=== PATIENT | female | born 1980 | race Two or more races ===

== ENCOUNTER 2018-05-02 18:55 | Emergency (ER) | payer SELFPAY ==
[2018-05-02] MEDS ORDERED: Cyclobenzaprine TAB* 10 MG PO ONE (19:12)
[2018-05-02] MEDS ORDERED: Ketorolac INJ* 60 MG/2 ML VIAL IM ONE (19:12)
[2018-05-02 19:13] VITALS: BP 84/58
--- NOTE | 2018-05-02 19:28 | UC ---
Back Pain HPI - HPI Summary HPI Summary: This is kayliee Sailaja Snyder documenting for attending Lex Chou MD. This patient is a 37 year old F presenting to [facility] with a chief complaint of lower back pain that began 10 days ago. The patient rates the pain 8/10 in severity. Symptoms aggravated by nothing. Symptoms alleviated by nothing. Patient denies urinary symptoms and bowel symptoms. She denies recent trauma. Last menstrual period was 05/01/2018. - History of Current Complaint Chief Complaint: UCBackPain Stated Complaint: BACK PAIN Time Seen by Provider: 05/02/18 19:05 Hx Obtained From: Patient Hx Last Menstrual Period: [id number] ?: No Onset/Duration: Sudden Onset, Lasting Weeks, Still Present Timing: Constant Severity Initially: Severe Severity Currently: Severe Pain Intensity: 8 Pain Scale Used: 0-10 Numeric Aggravating Factor(s): Nothing Alleviating Factor(s): Nothing Associated Signs And Symptoms: Negative: Bladder Incontinence, Bowel Incontinence - Allergies/Home Medications Allergies/Adverse Reactions: Allergies Allergy/AdvReac Type Severity Reaction Status Date / Time No Known Allergies Allergy Verified 05/02/18 19:13 PMH/Surg Hx/FS Hx/Imm Hx Previously Healthy: Yes Endocrine History: Other Other Endocrine History: Negative diabetes Cardiovascular History: Other Other Cardiovascular History: Negative HTN - Surgical History Surgical History: None - Family History Known Family History: Positive: Unknown - Social History Occupation: Unemployed Lives: Alone Alcohol Use: Occasionally Substance Use Type: Marijuana Smoking Status (MU): Heavy Every Day Tobacco Smoker Review of Systems Gastrointestinal: Negative Genitourinary: Negative Musculoskeletal: Other: - Positive lower back pain All Other Systems Reviewed And Are Negative: Yes Physical Exam - Summary Physical Exam Summary: VITAL SIGNS: Reviewed. GENERAL: Patient is a well-developed and nourished female who is lying comfortable in the stretcher. Patient is not in any acute respiratory distress. HEAD AND FACE: Normocephalic EYES: PERRLA, EOMI x 2. EARS: Hearing grossly intact. MOUTH: Oropharynx within normal limits. NECK: Supple, trachea is midline, no adenopathy, no JVD, no carotid bruit. CHEST: Symmetric, no tenderness at palpation LUNGS: Clear to auscultation bilaterally. No wheezing or crackles. CVS: Regular rate and rhythm, S1 and S2 present, no murmurs or gallops appreciated. ABDOMEN: Soft, non-tender. Bowel sounds are normal. No abdominal abnormal pulsations. Musculoskeletal: Muscle tenderness in the lumbar spine EXTREMITIES: Full ROM in all major joints, no edema, no cyanosis or clubbing. NEURO: Alert and oriented x 3. No acute neurological deficits. Speech is normal and follows commands. SKIN: Dry and warm Triage Information Reviewed: Yes Vital Signs: Initial Vital Signs Temp 98.5 F 05/02/18 19:06 Pulse 73 05/02/18 19:06 Resp 18 05/02/18 19:06 BP 84/58 05/02/18 19:06 Pulse Ox 97 05/02/18 19:06 Vital Signs Reviewed: Yes Diagnostics - Radiology Lumbar Spine XR Radiology Interpretation Completed By: Radiologist - Lumbar spine XR reveals, per radiologist, minor disc space narrowing L5-S1. No acute findings. ED physician has reviewed this radiology report. Back Pain Course/Dx - Course Course Of Treatment: This patient is a 37-year-old female who presents to the emergency department with chief complaint of lower back pain. Patient denies any dysuria or urinary frequency or any other complaint. Patient doesn't have any fecal or urinary dysfunction. X-ray of the lumbar spine shows a disc space narrowing between L5 and S1. The patient was given Toradol and Flexeril and the symptoms improved. The patient will be discharged home with follow-up with PCP and she will be given a prescription for ibuprofen, Flexeril, and Medrol Dosepak. The patient is hemodynamically stable alert and oriented 3. - Differential Dx/Diagnosis Provider Diagnoses: Back pain Discharge - Sign-Out/Discharge Documenting (check all that apply): Patient Departure - Discharge Plan Condition: Stable Disposition: HOME Prescriptions: Cyclobenzaprine TAB* [Flexeril 10 MG TAB*] 10 mg PO TID PRN #9 tab PRN Reason: Pain Ibuprofen TAB* [Motrin TAB* 600 MG] 600 mg PO Q8H PRN #30 tab PRN Reason: Pain methylPREDNISolone [Medrol Dosepak 4 MG*] 0 mg PO .SEE FADY INSTRUCTION #1 fady Patient Education Materials: Acute Low Back Pain (ED) Referrals: [facility] [facility] [Outside] No Primary Care Phys,NOPCP [Primary Care Provider] - Additional Instructions: Take medications as instructed and adhere to plan Take Acetaminophen or ibuprofen for pain or fever Increase your fluid intake Return to the UC or go to the emergency department if symptoms worsen Follow-up with primary care physician in next 2-3 days - Billing Disposition and Condition Condition: STABLE Disposition: Home
--- NOTE | 2018-05-02 19:47 | RAD ---
INDICATION: Fall. Back pain COMPARISON: None TECHNIQUE: AP and lateral views were obtained . FINDINGS: Bones: There are no acute bony findings. There are no significant osteoarthritic findings. Alignment: Normal Disc spaces: There is minor disc space narrowing about L5-S1 The remaining disc spaces are well-maintained Soft tissues: There are no soft tissue abnormalities. IMPRESSION: MINOR DISC SPACE NARROWING L5-S1. NO ACUTE FINDINGS.
== END 2018-05-02 19:50 | disposition home or self-care (01) ==
LOC: UCEAST 18:55
DX: M54.5 Low back pain (principal); F17.200 Nicotine dependence, unspecified, uncomplicated
CPT/HCPCS: 72100; 81003; 84702; 87086; 96372; 99202; A9270-GY; G0463; J1885

== ENCOUNTER 2019-06-30 21:11 | Emergency (ER) | payer SELFPAY ==
[2019-06-30] MEDS ORDERED: Amoxicillin/Clavulanate TAB* 875 MG PO ONE (21:44)
[2019-06-30] MEDS ORDERED: Ibuprofen TAB* 400 MG PO ONE (21:44)
--- NOTE | 2019-06-30 21:46 | ED ---
Lower Extremity - HPI Summary HPI Summary: This pt is a 39 Y/O F presenting to [facility] accompanied by her girlfriend with a CC of a possible infected tattoo in /her R calf. She states that she was in [place] when she got the tattoo. She has been having pain that is rated an 8/10 in severity since 06/25/19. She states that she has been having pus oozing from the tattoo, has felt fluid buildup in her R lateral ankle. She also states that she has been having episodic diarrhea. She denies any fevers, chills, N/V, and headaches. She states no aggravating or alleviating symptoms. She has a PMHx of Livedoid vasculopathy. - History of Current Complaint Chief Complaint: EDExtremityLower Stated Complaint: TATTOO ON LEG IS INFECTED PER PT Time Seen by Provider: 06/30/19 21:34 Hx Obtained From: Patient Hx Last Menstrual Period: Mechanism Of Injury: Other - recet tattoo, possible infection Onset of Pain: Days - 5 Onset/Duration: Days - 5 Severity Initially: Moderate Severity Currently: Severe Pain Intensity: 8 Pain Scale Used: 0-10 Numeric Timing: Constant Location: Is Diffuse - RLE Associated Signs And Symptoms: Positive: Redness, Other. Negative: Fever Aggravating Factor(s): Nothing Alleviating Factor(s): Nothing - Allergies/Home Medications Allergies/Adverse Reactions: Allergies Allergy/AdvReac Type Severity Reaction Status Date / Time No Known Allergies Allergy Verified 06/30/19 21:19 PMH/Surg Hx/FS Hx/Imm Hx Previously Healthy: Yes Endocrine/Hematology History: Denies: Hx Diabetes, Hx Thyroid Disease Cardiovascular History: Denies: Hx Hypertension Respiratory History: Denies: Hx Asthma, Hx Chronic Obstructive Pulmonary Disease (COPD) GI History: Denies: Hx Ulcer Sensory History: Reports: Hx Contacts or Glasses Opthamlomology History: Reports: Hx Contacts or Glasses - Surgical History Surgical History: None Infectious Disease History: No Infectious Disease History: Denies: Hx Hepatitis, Hx Human Immunodeficiency Virus (HIV), Traveled Outside the [place] in Last 30 Days - Family History Known Family History: Positive: Diabetes, Other - CA - Social History Occupation: Employed Full-time Lives: With Family Alcohol Use: Occasionally Hx Substance Use: Yes Substance Use Type: Reports: Marijuana Hx Tobacco Use: Yes Smoking Status (MU): Heavy Every Day Tobacco Smoker Amount Used/How Often: 12 cigarettes Review of Systems Negative: Fever, Chills Negative: Vomiting, Nausea Positive: Other - R lower extremity pain Skin: Other - red sheldon on calf, pus discharge from recent tattoo Negative: Headache All Other Systems Reviewed And Are Negative: Yes Physical Exam - Summary Physical Exam Summary: General: Well-developed, Well-nourished female. No acute distress. HEENT: Normocephalic, Atraumatic. Eyes: Conjuctiva normal, PERRL. Ears: TMs within normal limits. Nares: (-) discharge, (-) erythema. Oropharynx: Clear, mucous membranes moist, (-) exudates. Neck: Soft, FROM, (-) lymphadenopathy, (-) thyromegaly, (-) JVD. Cardiovascular: Normal sinus rhythm, (-) murmur. Lungs: Clear to auscultation bilaterally (-) wheezes, (-) rales, (-) rhonchi. Abdomen: Soft, non-tender, non-distended, (-) organomegaly, normal bowel sounds. Back: (-) CVA tenderness Extremities: No edema, R lateral leg has distal erythema, swelling, drainage, normal pulses , tenderness and warmth Skin: Warm, dry, (-) rash. Neuro: Alert and oriented x3, no focal deficits. Psychiatric: Mood normal, affect normal. Triage Information Reviewed: Yes Vital Signs On Initial Exam: Initial Vitals Temp Pulse Resp BP Pulse Ox 98.2 F 76 16 118/94 98 06/30/19 21:15 06/30/19 21:15 06/30/19 21:15 06/30/19 21:15 06/30/19 21:15 Vital Signs Reviewed: Yes Diagnostics - Vital Signs Vital Signs Temp Pulse Resp BP Pulse Ox 06/30/19 21:15 98.2 F 76 16 118/94 98 - Laboratory Lab Statement: Any lab studies that have been ordered have been reviewed, and results considered in the medical decision making process. Lower Extremity Course/Dx - Course Course Of Treatment: This pt is a 39 Y/O F presenting to [facility] accompanied by her girlfriend with a CC of a possible infected tattoo in /her R calf. She states that she was in [place] when she got the tattoo. Her PE found that her R lateral leg has distal erythema, swelling, drainage, normal pulses , tenderness and warmth. - Diagnoses Provider Diagnoses: Cellulitis of right leg Discharge ED - Sign-Out/Discharge Documenting (check all that apply): Patient Departure - discharge Patient Received Moderate/Deep Sedation with Procedure: No - Discharge Plan Condition: Stable Disposition: HOME Prescriptions: Amoxicillin/Clavulanate TAB* [Augmentin TAB 875*] 875 mg PO BID 10 Days #20 tab Patient Education Materials: Cellulitis (ED) Referrals: [facility] [Outside] - 2 Days Additional Instructions: PLEASE RETURN TO THE EMERGENCY DEPARTMENT FOR ANY NEW OR WORSENING SYMPTOMS. Follow up with [facility] to help set your up with a Primary Care Physician in the next 1-3 days. Please take the prescribed medications as directed. - Billing Disposition and Condition Condition: STABLE Disposition: Home - Attestation Statements Document Initiated by Scribe: Yes Documenting Scribe: Aiden Pandya Provider For Whom Fran is Documenting (Include Credential): Mary Vega MD Scribe Attestation: IAiden, scribed for Mary Vega MD on 07/01/19 at 0210. Scribe Documentation Reviewed: Yes Provider Attestation: The documentation as recorded by the Aiden kessler accurately reflects the service I personally performed and the decisions made by me, Mary Vega MD Status of Scribe Document: Viewed
[2019-06-30 22:25] VITALS: BP 107/69
== END 2019-06-30 22:24 | disposition home or self-care (01) ==
LOC: ED 21:11
DX: L03.115 Cellulitis of right lower limb (principal); F17.210 Nicotine dependence, cigarettes, uncomplicated; R19.7 Diarrhea, unspecified
CPT/HCPCS: 99282; A9270-GY